=== PATIENT | female | born 1975 | race Caucasian/White ===

== ENCOUNTER → 2024-05-02 09:42 | Outpatient (REF) | payer BC, SELFPAY | LOC: RAD 09:42 | PROVIDERS: FAMILY PHYSICIAN Nurse Practitioner Adult Health | DX: R68.2 Dry mouth, unspecified (principal); K11.20 Sialoadenitis, unspecified | CPT/HCPCS: 76536 ==

== ENCOUNTER → 2024-06-12 13:20 | Outpatient (REF) | payer BC, SELFPAY | LOC: WDC 13:20 | PROVIDERS: ATTENDING PHYSICIAN Obstetrics & Gynecology | DX: Z12.31 Encounter for screening mammogram for malignant neoplasm of breast (principal) | CPT/HCPCS: 77063; 77067 ==

== ENCOUNTER 2024-08-31 18:03 | Inpatient (IN) | payer BC, SELFPAY ==
[2024-08-31] VITALS (7 sets, daily range): BP systolic 114–142; BP diastolic 69–92; BMI 18.0
[2024-08-31 11:30] LABS: % Basophils 0.2 % (0-2); % Eosinophils 0.2 % (0-6); % Immature Granulocytes 0.6 % (0-0.5); % Lymphocytes 3.9 % (20.5-51.1); % Monocytes 7.6 % (1.7-9.3); % Neutrophils 87.5 % (42.2-75.2); Absolute Immature Granulocytes 0.1 10^3/uL (0-0.05); Absolute Lymphocytes 0.8 10^3/uL (1.2-3.4); Absolute Monocytes 1.5 10^3/uL (0.1-0.6); Absolute Neutrophils 16.9 10^3/uL (1.4-6.5); Hematocrit 37.1 % (37.0-47.0); Hemoglobin 12.6 g/dL (12.0-16.0); Mean Corpuscular Volume 85.3 fL (81.0-99.0); Mean Platelet Volume 9.4 fL (7.4-10.4); Nucleated Red Blood Cells % 0 %; Platelet Count 445 10^3/uL (130-400); Red Blood Cell Count 4.35 10^6/uL (4.20-5.40); Red Cell Dist. Width 13.7 % (11.5-14.5); White Blood Cell Count 19.3 10^3/uL (4.8-10.8)
[2024-08-31 11:51] LABS: ALT (SGPT) 22 U/L (0-35); AST (SGOT) 17 U/L (14-36); Albumin 3.9 g/dl (3.5-5.0); Alkaline Phosphatase 91 U/L (38-126); Blood Urea Nitrogen 14 mg/dl (7-17); Calcium 9.3 mg/dl (8.4-10.2); Carbon Dioxide 28 mmol/L (22-30); Chloride 99 mmol/L (98-107); Glucose 156 mg/dl (70-99); Potassium 3.8 mmol/L (3.5-5.1); Sodium 141 mmol/L (135-145); Total Bilirubin 0.4 mg/dl (0.2-1.3); Total Protein 6.4 g/dl (6.3-8.2); eGFR > 60.00
[2024-08-31 11:53] LABS: HCG, Serum Qualitative Screen Negative
--- NOTE | 2024-08-31 13:42 | ED.GENMED ---
History of Present Illness
<SLADE Vanegas - Last Filed: 09/01/24 08:33>
General
Chief Complaint: Fever
Source: patient
Exam Limitations: none
Time Seen by Provider: 08/31/24 12:16
Nursing documentation reviewed up to this point in time: agreed with
History of Present Illness
History of Present Illness:
49-year-old female presents to the ER for evaluation. Patient reports she has had fevers of up to 102 intermittently for the past 9 days and has had bodyaches. She reports her joints hurt she is achy and her skin hurts. She prior to her symptoms
did note foul-smelling urine. She was seen by her family doctor on Sunday 4 days ago but did not give a urine there and went to urgent care last night who treated her for Macrobid. She had 2 doses of Macrobid. She complains of constant sweats
and while the night and fevers. She is drinking fluids but still feels very dehydrated
Past History
<SLADE Vanegas - Last Filed: 09/01/24 08:33>
Past History
ED Past Medical History: Other (Factor V Leiden)
ED Past Surgical History: Other (recent dental extraction - 1 wk ago L upper molar)
Social History
Tobacco: Non-smoker
Alcohol: None
Drug: None
Personal:
Living: with family
Family History
Family History: Hypertension and Other (Mother with DVT)
Review of Systems
<SLADE Vanegas - Last Filed: 09/01/24 08:33>
Review of Systems
Allergies reviewed?: Yes
All Other Systems: ROS reviewed and negative except as documented in HPI and ROS
Constitutional: Reports fever
EENT: Reports no symptoms
Respiratory: Reports no symptoms
Cardiac: Reports no symptoms
ABD/GI: Reports no symptoms; Denies abdominal pain, nausea or vomiting
: Reports other (foul smelling urine )
Musculoskeletal: Reports muscle pain
Skin: Reports no symptoms; Denies rash
Neurological: Reports no symptoms
Hematologic/Lymphatic: Reports no symptoms
Phy Exam
<SLADE Vanegas - Last Filed: 09/01/24 08:33>
General Physical Exam
General Presentation: no apparent distress
General age: appears stated age
General Skin: warm and dry
General Habitus: normal
General Mental: alert
General Hydration: dry mucous membranes
Cardiovascular Exam
Cardiovascular Exam: regular rate/rhythm, no murmur and normal peripheral pulses
Pulmonary Exam
Pulmonary Exam: lungs clear and no respiratory distress
Gastrointestinal Exam
Gastrointestinal Exam: non tender and soft
Neurological Exam
Neurological Exam: alert and oriented x3
Musculoskeletal Exam
Musculoskeletal Exam: full ROM
Skin Exam
Skin Exam: normal color and warm/dry
Psychiatric Exam
Psychiatric Exam: normal mood/affect
Course
<SLADE Vanegas - Last Filed: 09/01/24 08:33>
Orders/Labs/Results
Orders:
Orders
08/31/24 11:16
Test Result ONCE
08/31/24 11:25
Complete Blood Count/With Diff Urgent
Comprehensive Metabolic Panel Urgent
HCG, Serum Qualitative Screen Urgent
08/31/24 13:16
Urinalysis Reflex To Culture Urgent
Date Specimen was Collected: 08/31/24
Time Specimen was Collected: 11:16
Urine Microscopic Reflex Cult Urgent
Urine Culture Urgent
PATI Source: U
Specimen Description:
Date Specimen was Collected: 08/31/24
Time Specimen was Collected: 11:16
08/31/24 13:56
CT Abd/pel Without Iv Or Oral Urgent
Comment:
Reason For Exam: fever uti pain
08/31/24 14:13
0.9% Sodium Chloride 1000 ml [Nss] 1,000 ml IV BOLUS
Acetaminophen [Tylenol] 650 mg PO NOW STA
Ketorolac [Toradol] 30 mg IV NOW STA
LevoFLOXacin 500 MG/100 ML [Levaquin] 500 mg in 100 ml IV NOW
08/31/24 14:14
Lactic Acid Urgent
08/31/24 17:36
EKG [Electrocardiogram (*1)] Routine
Reason for Study: QTc Monitoring
08/31/24 17:45
Admit/Transfer Patient As Directed
Co-Sign Provider:
Level of Care: Inpatient admission
Assign to:: Medical/Surgical
Physician / Group: htay
Diagnosis: UTI eval for acute pyelonephritis
Reason for Hospitalization: UTI eval for acute pyelonephritis
Expected length of stay greater than two midnights?: Yes
ELOS- Estimated Length of Stay in days: 3
I certify the patient meets the requirements for IP care: Yes
08/31/24 17:48
Code Status As Directed
Resuscitation Status: Full Code
08/31/24 18:34
Butalb/Acetaminophen/Caffeine [Fioricet] 1 tab PO DAILYPRN PRN
08/31/24 18:46
Tramadol HCl [Ultram] 100 mg PO DAILYPRN PRN
08/31/24 19:33
Bisacodyl [Dulcolax] 10 mg RECTAL [id number] PRN
Docusate W/Senna [Senokot-S] 1 tablet PO BIDPRN PRN
Polyethylene Glycol Powder [Miralax] 17 grams PO DAILYPRN PRN
Trazodone [Desyrel] 50 mg PO HSPRN PRN
08/31/24 19:33
Activity As Directed
Activity Level: With Assistance
Intake/ Output As Directed
Frequency: Per unit guidelines
Pneumatic Compression Sleeves As Directed
Type: Knee high
Vital Signs As Directed
Frequency: Per unit guidelines
Weight As Directed
Frequency: Daily
DX Deep Vein Thrombosis Video Routine
08/31/24 20:00
Famotidine [Pepcid] 20 mg PO BID
09/01/24 06:00
EKG [Electrocardiogram (*1)] IN AM
Reason for Study: QTc Monitoring
Regular
At Your Request: Full Participation
Levothyroxine [Synthroid] 37.5 mcg PO DAILY@0600
09/01/24 06:46
Basic Metabolic Panel IN AM
Complete Blood Count/No Diff IN AM
09/01/24 08:00
Spironolactone [Aldactone] 50 mg PO DAILY
atogepant [Qulipta] See Dose Instructions PO DAILY
dextroamphetamine-amphetamine [Adderall XR] See Dose Instructions PO DAILY
prucalopride [Motegrity] See Dose Instructions PO DAILY
09/01/24 10:00
LevoFLOXacin 500 MG/100 ML [Levaquin] 500 mg in 100 ml IV Q24H
09/01/24 12:00
Amphet Asp/Amphet/D-Amphet [Adderall] 10 mg PO DAILY@1200
Abnormal Lab Results
08/31/24 08/31/24
11:25 13:16
WBC 19.3 H 10^3/uL
(4.8-10.8)
Plt Count 445 H 10^3/uL
(130-400)
Abs Immat Gran (auto) 0.1 H 10^3/uL
(0-0.05)
Absolute Neuts (auto) 16.9 H 10^3/uL
(1.4-6.5)
Absolute Lymphs (auto) 0.8 L 10^3/uL
(1.2-3.4)
Absolute Monos (auto) 1.5 H 10^3/uL
(0.1-0.6)
Immature Gran % 0.6 H %
(0-0.5)
Neutrophils % 87.5 H %
(42.2-75.2)
Lymphocytes % 3.9 L %
(20.5-51.1)
Glucose 156 H mg/dl
(70-99)
Urine Ketones 1+ A
(Negative)
Ur Occult Blood Reflex 3+ A
(Negative)
Urine Bilirubin 1+ A
(Negative)
Leukocyte Esterase Rfl 2+ A
(Negative)
Urine RBC 21-25 A /HPF
(0-2)
Urine WBC (Reflex) 26-30 A /HPF
(0-5)
Urine Bacteria (Reflex) Few A
(Negative)
08/31/24 11:25
08/31/24 11:25
Vital Signs
Initial and Last Documented VS:
Initial Vital Signs
Temp Pulse Resp BP Pulse Ox
97.8 F 87 18 119/72 97
08/31/24 11:10 08/31/24 11:10 08/31/24 11:10 08/31/24 11:10 08/31/24 11:10
Last Documented Vital Signs
Temp Pulse Resp BP Pulse Ox
98.6 F 83 17 114/69 96
08/31/24 23:35 08/31/24 23:35 08/31/24 23:35 08/31/24 23:35 08/31/24 23:35
Roll Slicing Machine Tender consulted with Physician
Roll Slicing Machine Tender consulted with physician?: Yes
Name of Physician Consulted: dr lawrence
<Santo Richardson PA-C - Last Filed: 08/31/24 17:20>
Orders/Labs/Results
Orders:
Orders
08/31/24 11:16
Test Result ONCE
08/31/24 11:25
Complete Blood Count/With Diff Urgent
Comprehensive Metabolic Panel Urgent
HCG, Serum Qualitative Screen Urgent
08/31/24 13:16
Urinalysis Reflex To Culture Urgent
Date Specimen was Collected: 08/31/24
Time Specimen was Collected: 11:16
Urine Microscopic Reflex Cult Urgent
Urine Culture Urgent
PATI Source: U
Specimen Description:
Date Specimen was Collected: 08/31/24
Time Specimen was Collected: 11:16
08/31/24 13:56
CT Abd/pel Without Iv Or Oral Urgent
Comment:
Reason For Exam: fever uti pain
08/31/24 14:13
0.9% Sodium Chloride 1000 ml [Nss] 1,000 ml IV BOLUS
Acetaminophen [Tylenol] 650 mg PO NOW STA
Ketorolac [Toradol] 30 mg IV NOW STA
LevoFLOXacin 500 MG/100 ML [Levaquin] 500 mg in 100 ml IV NOW
08/31/24 14:14
Lactic Acid Urgent
08/31/24 17:36
EKG [Electrocardiogram (*1)] Routine
Reason for Study: QTc Monitoring
08/31/24 17:45
Admit/Transfer Patient As Directed
Co-Sign Provider:
Level of Care: Inpatient admission
Assign to:: Medical/Surgical
Physician / Group: htay
Diagnosis: UTI eval for acute pyelonephritis
Reason for Hospitalization: UTI eval for acute pyelonephritis
Expected length of stay greater than two midnights?: Yes
ELOS- Estimated Length of Stay in days: 3
I certify the patient meets the requirements for IP care: Yes
08/31/24 17:48
Code Status As Directed
Resuscitation Status: Full Code
08/31/24 18:34
Butalb/Acetaminophen/Caffeine [Fioricet] 1 tab PO DAILYPRN PRN
08/31/24 18:46
Tramadol HCl [Ultram] 100 mg PO DAILYPRN PRN
08/31/24 19:33
Bisacodyl [Dulcolax] 10 mg RECTAL [id number] PRN
Docusate W/Senna [Senokot-S] 1 tablet PO BIDPRN PRN
Polyethylene Glycol Powder [Miralax] 17 grams PO DAILYPRN PRN
Trazodone [Desyrel] 50 mg PO HSPRN PRN
08/31/24 19:33
Activity As Directed
Activity Level: With Assistance
Intake/ Output As Directed
Frequency: Per unit guidelines
Pneumatic Compression Sleeves As Directed
Type: Knee high
Vital Signs As Directed
Frequency: Per unit guidelines
Weight As Directed
Frequency: Daily
DX Deep Vein Thrombosis Video Routine
08/31/24 20:00
Famotidine [Pepcid] 20 mg PO BID
09/01/24 06:00
EKG [Electrocardiogram (*1)] IN AM
Reason for Study: QTc Monitoring
Regular
At Your Request: Full Participation
Levothyroxine [Synthroid] 37.5 mcg PO DAILY@0600
09/01/24 06:46
Basic Metabolic Panel IN AM
Complete Blood Count/No Diff IN AM
09/01/24 08:00
Spironolactone [Aldactone] 50 mg PO DAILY
atogepant [Qulipta] See Dose Instructions PO DAILY
dextroamphetamine-amphetamine [Adderall XR] See Dose Instructions PO DAILY
prucalopride [Motegrity] See Dose Instructions PO DAILY
09/01/24 10:00
LevoFLOXacin 500 MG/100 ML [Levaquin] 500 mg in 100 ml IV Q24H
09/01/24 12:00
Amphet Asp/Amphet/D-Amphet [Adderall] 10 mg PO DAILY@1200
Abnormal Lab Results
08/31/24 08/31/24
11:25 13:16
WBC 19.3 H 10^3/uL
(4.8-10.8)
Plt Count 445 H 10^3/uL
(130-400)
Abs Immat Gran (auto) 0.1 H 10^3/uL
(0-0.05)
Absolute Neuts (auto) 16.9 H 10^3/uL
(1.4-6.5)
Absolute Lymphs (auto) 0.8 L 10^3/uL
(1.2-3.4)
Absolute Monos (auto) 1.5 H 10^3/uL
(0.1-0.6)
Immature Gran % 0.6 H %
(0-0.5)
Neutrophils % 87.5 H %
(42.2-75.2)
Lymphocytes % 3.9 L %
(20.5-51.1)
Glucose 156 H mg/dl
(70-99)
Urine Ketones 1+ A
(Negative)
Ur Occult Blood Reflex 3+ A
(Negative)
Urine Bilirubin 1+ A
(Negative)
Leukocyte Esterase Rfl 2+ A
(Negative)
Urine RBC 21-25 A /HPF
(0-2)
Urine WBC (Reflex) 26-30 A /HPF
(0-5)
Urine Bacteria (Reflex) Few A
(Negative)
08/31/24 11:25
08/31/24 11:25
Vital Signs
Initial and Last Documented VS:
Initial Vital Signs
Temp Pulse Resp BP Pulse Ox
97.8 F 87 18 119/72 97
08/31/24 11:10 08/31/24 11:10 08/31/24 11:10 08/31/24 11:10 08/31/24 11:10
Last Documented Vital Signs
Temp Pulse Resp BP Pulse Ox
98.6 F 83 17 114/69 96
08/31/24 23:35 08/31/24 23:35 08/31/24 23:35 08/31/24 23:35 08/31/24 23:35
<SLADE Vanegas - Last Filed: 09/01/24 08:33>
MDM/Problems Addressed
Differential Diagnosis Includes:
Not limited to pyelonephritis less likely renal stone
MDM/Problems Addressed:
Patient is a 49-year-old female who complains of intermittent fevers for the past 9 days .
initially she noted that her urine smelled very foul smelling prior to symptoms of fever she was seen by urgent care last night and prescribed Macrobid took 2 doses but complains of persistent fevers though she is afebrile here white count is
19,000., Kidney function is normal urinalysis appears infected she does have a history of stone will order CAT scan. Patient was treated with antibiotics fluids. Lactic acid is normal. Patient eval by ED physician will require admission.
CAT scan pending at this time.1515: Care of patient transferred to [facility].
<SLADE Vanegas - Last Filed: 09/01/24 08:33>
*Radiology
Radiology exam reviewed: radiology read reviewed
*Pulse Oximetry
Patient hypoxic: no
<Santo Richardson PA-C - Last Filed: 08/31/24 17:20>
*Critical Care Note
Total Time (30-74mins, 75-104mins- exclusive of procedures): Not Applicable
<Santo Richardson PA-C - Last Filed: 08/31/24 17:20>
Update Note
Update Note:
Assumed care of patient pending CT of abdomen and pelvis. CT was negative for acute stone. Patient's white blood cell count is 19.3 she has had a fever for 8 days as high as 103 at home started oral antibiotics yesterday. Was given Levaquin
fluids. Will admit to hospital for UTI possible pyelonephritis
ED Attending Note
<SLADE Vanegas - Last Filed: 09/01/24 08:33>
-
Portions of this chart may have been created with voice recognition software.� Occasional wrong word or��sound alike� substitutions may have occurred due to the inherent limitations of voice recognition software.
Discharge Plan
Departure
Patient Disposition: Admit
Date of Disposition: 08/31/24
Time of Disposition: 17:20
Admit to: Telemetry
Presentation/result/management discussed w/ accepting MD/DO: Hospitalist
Discharge Problem:
UTI (urinary tract infection)
Interventions
Interventions:
*Risk Screen - Suicide Last Done: 08/31/24 11:10
*General Assessment Last Done: 08/31/24 11:10
*Neglect/Abuse Screening Last Done: 08/31/24 11:10
ED- Fall Risk Assessment Last Done: 08/31/24 14:00
*ED COVID-19 Vaccine History Last Done: 08/31/24 14:00
*Nursing Disposition Last Done: 08/31/24 19:18
ED- Neurological Assessment Last Done: 08/31/24 14:00
ED-Skin Assessment Last Done: 08/31/24 14:00
Discharge Date and Time
Discharge Date/Time: 08/31/24 19:19
[2024-08-31 13:51] LABS: Urine Albumin Trace (Neg - Trace); Urine Bilirubin 1+ (Negative); Urine Character Slightly Cloudy (Clear); Urine Color Yellow; Urine Glucose Negative (Negative); Urine Ketone 1+ (Negative); Urine Leukocyte 2+ (Negative); Urine Nitrite Negative (Negative); Urine Occult Blood 3+ (Negative); Urine Urobilinogen Negative (Neg - 1+)
[2024-08-31 14:09] LABS: Urine Mucus Moderate; Urine Squamous Cell >30 /LPF (Few)
[2024-08-31] MEDS: NSS 1000 IV (14:14)
[2024-08-31 14:15] LABS: Urine Amorphous Seen; Urine Red Blood Cell 21-25 /HPF (0-2)
[2024-08-31 14:16] LABS: Urine Bacteria Few (Negative); Urine White Cell 26-30 /HPF (0-5)
[2024-08-31] MEDS: TORADOL 30 MG IV (14:23)
[2024-08-31] MEDS: LEVAQUIN 100 IV (14:24)
[2024-08-31] MEDS: TYLENOL 650 MG PO ×2 (14:24→23:45)
[2024-08-31 14:38] LABS: Lactic Acid 0.7 mmol/L (0.7-2.0)
--- NOTE | 2024-08-31 17:41 | HPS.HSE ---
Family Physician
-
Family Physician: SLADE Porter
Chief Complaint
-
fever and sweats
History of Present Illness
49F HX recurrent UTI HX ureteric stone required cystoscopy, right ureteroscopy, laser lithotripsy, ureteral stone extraction, right ureteral stent placement in 2021, HX Factor V Leiden pw intermittent fever at home. Reported T max 103. Afebrile at
ER and no SIRS criteria.
- associated with sweats and while the night and fevers.
- Fouls smelling urine
- POS myalgia
- [place] [facility] [place] and started on Macrobid
Medical History
Past Medical History
Past Medical History: Reports Other (Factor V Leiden def )
Additional Past Medical History:
Ureteric stone
Past Surgical History: Reports Urological (06/15/22 Cystoscopy, right ureteroscopy, laser lithotripsy, ureteral stone extraction, right ureteral stent placement.)
Social History
Tobacco: Non-smoker
Alcohol: None
Drug: None
Personal:
Living: With Family
Family History
Family History: Not pertinent
Allergies / Home Medications
Allergies reflects when Allergies were last updated in [employer].
Home Medications with original date entered in [employer] [facility]
Allergy/Medication List:
Allergies
Allergy/AdvReac Type Severity Reaction Status Date / Time
amoxicillin [Amoxicillin] Allergy Hives, Verified 08/31/24 11:10
nausea,
vomiting
erythromycin base Allergy Hives, Verified 08/31/24 11:10
[Erythromycin Base] nausea,
vomiting
Home Medications
levothyroxine 75 mcg tablet (Synthroid) 37.5 mcg PO DAILY 06/14/22
sertraline 100 mg tablet 100 mg PO DAILY 06/14/22
spironolactone 50 mg tablet 50 mg PO DAILY 06/14/22
trazodone 50 mg tablet 50 mg PO HSPRN PRN sleep 06/14/22
acetaminophen 325 mg tablet (Tylenol) 325 mg PO Q6HPRN PRN mild pain 08/31/24
atogepant 60 mg tablet (Qulipta) 60 mg PO DAILY 08/31/24
jnltdssvko-dxbqptnchpbyy-pzutwnlz 50 mg-325 mg-40 mg tablet 1 tab PO DAILYPRN PRN migraines 08/31/24
dextroamphetamine-amphetamine 10 mg tablet (Adderall) 10 mg PO DAILY@1200 08/31/24
dextroamphetamine-amphetamine ER 30 mg 24hr capsule,extend release (Adderall XR) 30 mg PO DAILY 08/31/24
famotidine 20 mg tablet (Pepcid) 20 mg PO BID 08/31/24
nitrofurantoin monohydrate/macrocrystals 100 mg capsule (Macrobid) 100 mg PO BID 08/31/24
prucalopride 1 mg tablet (Motegrity) 1 mg PO DAILY 08/31/24
tramadol 100 mg tablet 100 mg PO DAILYPRN PRN severe pain 08/31/24
ubrogepant 100 mg tablet (Ubrelvy) 100 mg PO DAILYPRN PRN migraines 08/31/24
Review of Systems
-
Constitutional: Reports Fever, Night Sweats and Chills
EENT: Reports No Symptoms
Respiratory: Reports No Symptoms
Cardiac: Reports No Symptoms
Abdomen/GI: Reports No Symptoms
: Reports No Symptoms
Musculoskeletal: Reports No Symptoms
Skin: Reports No Symptoms
Neurological: Reports No Symptoms
Endocrine: Reports No Symptoms
Hematologic/Lymphatic: Reports No Symptoms
Psych: Reports No Symptoms
Physical Exam
Vital Signs
Vital Signs
Temp Pulse Resp BP Pulse Ox
97.8 F 90 18 135/83 99
08/31/24 15:00 08/31/24 16:17 08/31/24 16:17 08/31/24 16:17 08/31/24 16:17
Physical Exam
General: Well Developed, Well Nourished and No Apparent Distress
HEENT: NormoCephalic, Moist mucous membranes and Atraumatic
Respiratory: Clear
Cardiac: S1/S2 and Regular Rhythm; No Murmur or Rub
GI: Soft, Non Tender, Non Distended and Normal Bowel Sounds; No Organomegaly
Rectal: Deferred by Provider
Genito-urinary: No Costovertebral angle tend
Musculoskeletal: No Clubbing, No Cyanosis and No Edema
Skin: No Rash
Neuro: Nonfocal/grossly intact
Laboratory Results
-
08/31/24 11:25
08/31/24 11:25
Laboratory Results
Lactic Acid 0.7 mmol/L (0.7-2.0) 08/31/24 14:14
Total Bilirubin 0.4 mg/dl (0.2-1.3) 08/31/24 11:25
AST 17 U/L (14-36) 08/31/24 11:25
ALT 22 U/L (0-35) 08/31/24 11:25
Alkaline Phosphatase 91 U/L (38-126) 08/31/24 11:25
Data Reviewed
-
CT Scan: Report Reviewed by me
Lab Data: Labs Reviewed by me
Old Records: Reviewed
Impression/Plan
-
Reviewed VS: unremarkable VS
Data
WCC 19.3 Plt 445
Unremarkable CMP
NEG HCG
POS UA for UTI
CT Abd/pel Without Iv Or Oral
- No evidence for urinary tract calculi.
- Limited evaluation with lack of GI luminal contrast and lack of intravenous contrast, as well as a relative paucity of fat. No gross evidence for acute abnormality
ASSESSMENT & PLAN
UTI : NEG CT for urinary tract calculi
Possible acute PN
Leucocytosis. Afebrile at ER
HX Amoxicillin allergy with hives
No prior UCx Data in [employer] [facility]
06/15/22 Cystoscopy, right ureteroscopy, laser lithotripsy, ureteral stone extraction, right ureteral stent placement.
- f/u UCx
- Agree with IV LVQ
- f/u QT interval
- trend T and WCC
Hypothyroid
- on LT4
HX ADD
- on Adderall XR
DVT Px: SCD
Code: Full
IP MS
[2024-08-31] MEDS: FIORICET 1 TAB PO (18:58)
[2024-08-31] MEDS: ULTRAM 100 MG PO (18:59)
[2024-08-31] MEDS: SENOKOT-S 1 TABLET PO (21:11)
[2024-08-31] MEDS: DESYREL 50 MG PO (21:11)
[2024-08-31] MEDS: MELATONIN 5 MG PO (21:11)
[2024-08-31] MEDS: PEPCID 20 MG PO (21:11)
[2024-08-31] MEDS: MIRALAX 17 GRAMS PO (21:12)
[2024-09-01] MEDS: SYNTHROID 37.5 MCG PO (05:55)
[2024-09-01 06:00] VITALS: BMI 18.0
[2024-09-01 07:00] VITALS: BP 116/81
[2024-09-01 08:40] LABS: Hematocrit 32.9 % (37.0-47.0); Hemoglobin 11.2 g/dL (12.0-16.0); Mean Corpuscular Hgb 29.6 pg (27.0-31.0); Mean Corpuscular Volume 86.8 fL (81.0-99.0); Mean Platelet Volume 10.1 fL (7.4-10.4); Platelet Count 416 10^3/uL (130-400); Red Blood Cell Count 3.79 10^6/uL (4.20-5.40); Red Cell Dist. Width 13.8 % (11.5-14.5); White Blood Cell Count 13.2 10^3/uL (4.8-10.8)
[2024-09-01] MEDS: PEPCID 20 MG PO (08:56)
[2024-09-01 09:17] LABS: Blood Urea Nitrogen 12 mg/dl (7-17); Calcium 8.4 mg/dl (8.4-10.2); Carbon Dioxide 25 mmol/L (22-30); Chloride 101 mmol/L (98-107); Estimated Creatinine Clearance 87 ml/min; Glucose 94 mg/dl (70-99); Potassium 3.6 mmol/L (3.5-5.1); Sodium 138 mmol/L (135-145); eGFR > 60.00
[2024-09-01] MEDS: LEVAQUIN 100 IV (09:17)
[2024-09-01] MEDS: ZOLOFT 100 MG PO (09:32)
--- NOTE | 2024-09-01 10:21 | W.PN.HOSP.TC ---
Today's Communication/Plan
-
Bowel regimen
Assessment / Plan
Assessment / Plan
Gen-AAOx3, NAD
HEENT-NC, AT, anicteric, clear oral mm
Neck-supple
CV-reg, no M, +S1/S2
Lungs-clear B/L
Abd-soft, NT, mild distention
Ext-no edema
Musculoskeletal-no cyanosis, clubbing
Skin-warm and dry
Neuro-grossly non-focal
Psych-calm, cooperative
Chronic constipation/IBS -last BM 1 week ago. Will order MiraLAX, Colace, Senokot. Dulcolax suppository. If if no bowel movement then will need enema. She is scheduled for colonoscopy in 2 weeks, followed by Dr. Carr.
UTI -doubt pyelonephritis. Continue levofloxacin pending urine culture. WBC trending down.
Hypothyroidism -continue Synthroid.
Full code
Anticipated Discharge: Today
Subjective/Interval History
-
Date of Service: September 01, 2024
Patient seen and examined. Complaining of constipation.
Objective Data
-
Labs:
Laboratory Results
09/01/24
06:46
WBC 13.2 H
Hgb 11.2 L
Hct 32.9 L
Plt Count 416 H
Sodium 138
Potassium 3.6
Chloride 101
Carbon Dioxide 25
BUN 12
Creatinine 0.5 L
Glucose 94
Calcium 8.4
Vital Signs:
Vital Signs
Temp Pulse Resp BP Pulse Ox
99.1 F 88 16 116/81 97
09/01/24 07:00 09/01/24 07:00 09/01/24 07:00 09/01/24 07:00 09/01/24 07:00
I&O
08/31/24 09/01/2424
06:59 06:59 06:59
Intake Total 600 / 600
Balance 600 / 600
Review of Systems
-
History Source: Patient
All other systems: Reviewed and negative
[2024-09-01] MEDS: SENOKOT-S 1 TABLET PO (11:40)
[2024-09-01] MEDS: MIRALAX 17 GRAMS PO (11:40)
[2024-09-01] MEDS: DULCOLAX 10 MG RECTAL (12:19)
--- NOTE | 2024-09-01 12:35 | W.DS.TRANS ---
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
-
Discharge Instructions:
Discharge Diagnosis/Procedures UTI, IBS
Diet Regular
Activity As tolerated
Driving Restrictions As prior to admission
Bathing Restrictions None
Instructions:
Stand-Alone Forms:
Changes to Home Medications: No
Discharge Medications:
DC Medications w/original date entered in [employer]
levothyroxine 75 mcg tablet (Synthroid) 37.5 mcg PO DAILY Thyroid 06/14/22
sertraline 100 mg tablet 100 mg PO DAILY Depression 06/14/22
spironolactone 50 mg tablet 50 mg PO DAILY Blood Pressure 06/14/22
trazodone 50 mg tablet 50 mg PO HSPRN PRN sleep 06/14/22
acetaminophen 325 mg tablet (Tylenol) 325 mg PO Q6HPRN PRN mild pain 08/31/24
atogepant 60 mg tablet (Qulipta) 60 mg PO DAILY migraine 08/31/24
cmsdjplgxm-nvypgbgtijstg-tvjwkdcq 50 mg-325 mg-40 mg tablet 1 tab PO DAILYPRN PRN migraines 08/31/24
dextroamphetamine-amphetamine 10 mg tablet (Adderall) 10 mg PO DAILY@1200 attention def disorder 08/31/24
dextroamphetamine-amphetamine ER 30 mg 24hr capsule,extend release (Adderall XR) 30 mg PO DAILY attention def disorder 08/31/24
famotidine 20 mg tablet (Pepcid) 20 mg PO BID Gastrointestinal Issue 08/31/24
prucalopride 1 mg tablet (Motegrity) 1 mg PO DAILY Gastrointestinal Issue 08/31/24
tramadol 100 mg tablet 100 mg PO DAILYPRN PRN severe pain 08/31/24
ubrogepant 100 mg tablet (Ubrelvy) 100 mg PO DAILYPRN PRN migraines 08/31/24
levofloxacin 500 mg tablet 500 mg PO DAILY #3 tabs 09/01/24
polyethylene glycol 3350 17 gram oral powder packet (HealthyLax) 17 g PO DAILY #0 ea 09/01/24
sennosides 8.6 mg-docusate sodium 50 mg tablet 1 tab PO BID #0 tabs 09/01/24
Home Medication Changes
Pending Results: No
--- NOTE | 2024-09-01 12:46 | CM ---
Reviewed chart, met with patient to obtain information for assessment. Patient stated that she lives with her spouse who was at bedside, in a two story home with 2 steps to enter. She described herself as independent with all of her ADLs, personal
care, bathing and dressing. 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 She drives and can get herself to her appointments and do all of her shopping. 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
Patient denied any DME in her home.
She has never had VN services.
She has not been to a SNF.
Patient has a prescription plan and uses, [facility] in [place] for all of her medications.
Patient's PCP is, Gaby JUNE.
Patient's spouse was at bedside. He confirmed that he can transport patient home.
Plan: Case management will continue to follow and assist with discharge planing. Patient will return home today.
[2024-09-01 12:52] VITALS: BP 142/89
== END 2024-09-01 12:54 | disposition home or self-care (01) | DRG 690 ==
LOC: 3 WEST ACU 18:03
PROVIDERS: Nurse Practitioner; ADMITTING PHYSICIAN Internal Medicine; ATTENDING PHYSICIAN Hospitalist; EMERGENCY PHYSICIAN Emergency Medicine; FAMILY PHYSICIAN Nurse Practitioner Adult Health
DX: N39.0 Urinary tract infection, site not specified (principal); D68.51 Activated protein C resistance; E86.0 Dehydration; I10 Essential (primary) hypertension; F98.8 Other specified behavioral and emotional disorders with onset usually occurring in childhood and adolescence; K58.1 Irritable bowel syndrome with constipation; E03.9 Hypothyroidism, unspecified; M79.10 Myalgia, unspecified site; Z79.890 Hormone replacement therapy; Z87.442 Personal history of urinary calculi; Z87.440 Personal history of urinary (tract) infections; Z88.1 Allergy status to other antibiotic agents; Z88.0 Allergy status to penicillin
CPT/HCPCS: 74176; 80048; 80053; 81003; 81015; 83605; 84703; 85025; 85027; 87086; 93005; 96361; 96374; 96375; 99285

== ENCOUNTER → 2024-09-03 12:20 | Outpatient (REF) | payer BC, SELFPAY | LOC: RAD 12:20 | PROVIDERS: ATTENDING PHYSICIAN Nurse Practitioner Family; FAMILY PHYSICIAN Nurse Practitioner Adult Health | DX: R63.4 Abnormal weight loss (principal) | CPT/HCPCS: 74177; Q9967 ==

== ENCOUNTER → 2024-09-10 14:49 | Outpatient (REF) | payer BC, SELFPAY | LOC: RAD 14:49 | PROVIDERS: ATTENDING PHYSICIAN Surgery; FAMILY PHYSICIAN Nurse Practitioner Adult Health | DX: I83.891 Varicose veins of right lower extremity with other complications (principal) | CPT/HCPCS: 93970 ==

== ENCOUNTER → 2024-10-06 06:29 | Day surgery (SDC) | payer BC, SELFPAY | LOC: GI 06:29 | PROVIDERS: ATTENDING PHYSICIAN Internal Medicine Gastroenterology | DX: Z12.11 Encounter for screening for malignant neoplasm of colon (principal); K59.01 Slow transit constipation; Q43.8 Other specified congenital malformations of intestine; R93.3 Abnormal findings on diagnostic imaging of other parts of digestive tract; K44.9 Diaphragmatic hernia without obstruction or gangrene; K29.50 Unspecified chronic gastritis without bleeding; K31.89 Other diseases of stomach and duodenum | CPT/HCPCS: 43239; G0121; 88305; 88342 ==

== ENCOUNTER → 2025-01-21 08:05 | Outpatient (REF) | payer BC, SELFPAY | LOC: RAD 08:05 | PROVIDERS: ATTENDING PHYSICIAN Physician Assistant; FAMILY PHYSICIAN Nurse Practitioner Adult Health | DX: K21.9 Gastro-esophageal reflux disease without esophagitis (principal) | CPT/HCPCS: 78264; A9541 ==

== ENCOUNTER → 2025-01-22 13:11 | Outpatient (REF) | payer BC, SELFPAY | LOC: RSP 13:11 | PROVIDERS: ATTENDING PHYSICIAN Physician Assistant; FAMILY PHYSICIAN Nurse Practitioner Adult Health | DX: R06.02 Shortness of breath (principal); R09.89 Other specified symptoms and signs involving the circulatory and respiratory systems | CPT/HCPCS: 94727; 94729; 88738; 94010 ==

== ENCOUNTER → 2025-02-06 10:13 | Outpatient (REF) | payer BC, SELFPAY | LOC: RAD 10:13 | PROVIDERS: ATTENDING PHYSICIAN Internal Medicine Gastroenterology; FAMILY PHYSICIAN Nurse Practitioner Adult Health | DX: R13.19 Other dysphagia (principal) | CPT/HCPCS: 74221 ==

== ENCOUNTER → 2025-06-18 11:29 | Outpatient (REF) | payer BC, SELFPAY | LOC: WDC 11:29 | PROVIDERS: ATTENDING PHYSICIAN Nurse Practitioner Family | DX: Z12.31 Encounter for screening mammogram for malignant neoplasm of breast (principal) | CPT/HCPCS: 77063; 77067 ==